=== PATIENT | male | born 1985 | race Hispanic/Latino ===

== ENCOUNTER 2018-09-05 09:51 | Emergency (ER) | payer SELFPAY ==
[2018-09-05] MEDS ORDERED: Lidocaine 2% PF 5 ML VIAL ONE (10:04)
[2018-09-05] MEDS ORDERED: Bupivacaine 0.5% 10 ML VIAL ONE (10:05)
[2018-09-05] MEDS ORDERED: Adacel (T-DAP) 0.5 ML SYRINGE ONE (10:21)
[2018-09-05] MEDS ORDERED: CEFAZOLIN 1 GM VIAL ONE (10:48)
[2018-09-05] MEDS ORDERED: Sodium Chloride 0.9% 100 ML ONE (10:50)
[2018-09-05] MEDS ORDERED: Gentamicin Sulfate 80 MG in Premix Bag 1 BAG IVPB SCH (11:45)
[2018-09-05] MEDS ORDERED: Morphine 4 MG/ML VIAL ONE ×2 (11:52→12:17)
--- NOTE | 2018-09-05 12:05 | RAD ---
RIGHT HAND 2 VIEWS: DATE: 09/05/2018. FINDINGS: Laceration is seen on the dorsum of the third digit with soft tissue air present. There is a hint of a small amount of debris just dorsal to the proximal end of the middle phalanx. No fracture of this digit was seen with any assurance, though there is a tiny divot in the distal of the middle phalanx. The ER physician tells me that a fracture is clearly visible through the laceration. Additionally, there is a transverse fracture through the base of the distal phalanx of the thumb. Th ere is radial-side displacement of the distal fragment. The other digits appear intact. The carpal bones appear normal. IMPRESSION: 1. Fracture of the distal phalanx of the thumb. 2. Laceration on the dorsum of the third digit with a small amount of debris in the wound. POS: HOME
== END 2018-09-05 12:44 | disposition short-term general hospital (02) ==
LOC: BURERS 09:51
DX: S62.521B Displaced fracture of distal phalanx of right thumb, initial encounter for open fracture (principal); S62.602B Fracture of unspecified phalanx of right middle finger, initial encounter for open fracture; F17.210 Nicotine dependence, cigarettes, uncomplicated; X58.XXXA Exposure to other specified factors, initial encounter
CPT/HCPCS: 29125; 64450; 90471; 90715; 96365; 96367; 96375; J0690; J2001; J2270; J3490; J7050